=== PATIENT | female | born 1990 | race Caucasian/White ===

== ENCOUNTER 2023-09-04 10:34 | Outpatient (CLI) | payer OTHER, SELFPAY ==
--- NOTE | 2023-09-04 10:45 | MM_ITS ---
Patient: NATHALY CONTRERAS Facility:?[facility] Patient ID:?[id number] Site Patient ID:?[id number] Site :?1990 Study:?XRay-Breast Right 3D W/CAD-09/04/2023 11:05:29 AM Ordering Physician:Maddie Final Report: DIGITAL DIAGNOSTIC RIGHT MAMMOGRAM USING TOMOSYNTHESIS AND COMPUTER-AIDED DETECTION RIGHT BREAST ULTRASOUND CLINICAL HISTORY: RIGHT breast pain. COMPARISON: None. TECHNIQUE: Digital RIGHT mammogram in two projections. Tomosynthesis and CAD utilized. Real-time ultrasound imaging of RIGHT breast with imaging documentation. BREAST COMPOSITION: There are areas of scattered fibroglandular density. FINDINGS: 3D CC/MLO RIGHT breast mammogram images submitted. No suspicious mass or architectural distortion. No suspicious calcifications or adenopathy. Targeted RIGHT breast ultrasound performed in the area of concern 10 o`clock 1 cm from the nipple. Normal breast tissue is present. No fibrocystic change or mass. IMPRESSION: No suspicious findings. No evidence of malignancy. RECOMMENDATIONS: Age-appropriate screening mammography. Results and recommendations discussed with the patient. BI-RADS Category 2: Benign A lay language report of this examination will be provided to the patient. Dictated by Virgil Bird MD @ 09/04/2023 11:09:40 AM jj/Dictated by: Virgil Bird MD @ 09/04/2023 11:09:00 AM Signed by:Merry Bird MD @09/04/2023 1:51:15 PM (Electronic Signature)
--- NOTE | 2023-09-04 11:15 | US_ITS ---
Patient: NATHALY CONTRERAS Facility:?[facility] Patient ID:?[id number] Site Patient ID:?[id number] Site :?1990 Study:?US-Breast Right Dr. Bird to read-09/04/2023 11:15:54 AM Ordering Physician:Bessy Mohamud Final Report: PLEASE SEE DIGITAL DIAGNOSTIC RIGHT MAMMOGRAM PERFORMED SAME DAY CRL:penny francis/Dictated by: Virgil Bird MD @ 09/04/2023 11:17:00 AM Signed by:?Virgil Bird MD @09/04/2023 1:51:17 PM (Electronic Signature)
== END 2023-09-04 10:35 | disposition home or self-care (01) ==
LOC: MAMMO 10:35
PROVIDERS: Visit Provider Physician Assistant Medical
DX: N64.4 Mastodynia (principal); N64.52 Nipple discharge
CPT/HCPCS: 76642; 77065; G0279